=== PATIENT | female | born 1965 | race Two or more races ===

== ENCOUNTER → 2017-02-17 | Outpatient (CLI) | payer OTHER | END | disposition home or self-care (01) | LOC: CFH 10:45 | PROVIDERS: ATTEND Otolaryngology Facial Plastic Surgery | DX: R22.1 Localized swelling, mass and lump, neck (principal) | CPT/HCPCS: 76536 ==

== ENCOUNTER → 2017-05-02 | Outpatient (CLI) | payer OTHER | END | disposition home or self-care (01) | LOC: CFH 09:19 | PROVIDERS: ATTEND Otolaryngology Facial Plastic Surgery | DX: J05.0 Acute obstructive laryngitis [croup] (principal); J34.2 Deviated nasal septum | CPT/HCPCS: 74220 ==

== ENCOUNTER 2018-10-22 10:56 | Emergency (ER) | payer MEDICAID, OTHER ==
[~2018-10-22] VITALS: Ht 160 cm; Wt 92.0 kg
[2018-10-22 11:19] VITALS: BP 171/93
[2018-10-22] MEDS ORDERED: IBUPROFEN (12:09)
[2018-10-22] MEDS ORDERED: GABA-827 PO (12:09)
[2018-10-22] MEDS ORDERED: UNK ANTIBIOTIC (12:09)
[2018-10-22] MEDS ORDERED: LIDOCAINE-MPF 1%, 5ML ONE ×2 (12:15→12:45)
[2018-10-22] MEDS ORDERED: LIDOCAINE-MPF 1%, 5ML INFIL ONE (12:30)
[2018-10-22] MEDS ORDERED: HYDROcodone/APAP 5/325 TABLET ONE (13:10)
[2018-10-22] MEDS ORDERED: NEOSPORIN OINT. PKT 1 PACKET ONE (13:10)
[2018-10-22] MEDS ORDERED: HYDROcodone/APAP 5/325 TABLET PO ONE (13:30)
== END 2018-10-22 13:27 | disposition home or self-care (01) ==
LOC: ED 13:11
DX: L60.0 Ingrowing nail (principal); Z87.891 Personal history of nicotine dependence
CPT/HCPCS: 11730; 99283